=== PATIENT | male | born 1955 | race Caucasian/White ===

== ENCOUNTER 2017-11-24 11:43 | Emergency (ER) | payer OTHER, SELFPAY ==
[~2017-11-24] VITALS: Ht 175.3 cm; Wt 99.8 kg
[2017-11-24 13:18] LABS: BASOPHILS ABSOLUTE AUTO 0.02 K/mm3 (0.00-0.23); BASOPHILS PERCENT AUTO 0 % (0-2); EOSINOPHILS ABSOLUTE AUTO 0.02 K/mm3 (0.00-0.68); EOSINOPHILS PERCENT AUTO 0 % (0-6); Hematocrit 49.1 % (37.0-53.0); Hemoglobin 16.5 g/dL (13.5-17.5); IMMATURE GRAN ABSOLUTE AUTO 0.01 K/mm3 (0.00-0.10); IMMATURE GRAN PERCENT AUTO 0 % (0-1); LYMPHOCYTES ABSOLUTE AUTO 1.45 K/mm3 (0.84-5.20); LYMPHOCYTES PERCENT AUTO 22 % (21-46); MONOCYTES ABSOLUTE AUTO 0.88 K/mm3 (0.16-1.47); MONOCYTES PERCENT AUTO 13 % (4-13); Mean Corpuscular HGB 31.7 pg (26.0-34.0); Mean Corpuscular HGB Conc 33.6 g/dL (31.5-36.5); Mean Corpuscular Volume 94 fL (80-100); Mean Platelet Volume 11.4 fL (9.1-12.4); NEUTROPHILS ABSOLUTE AUTO 4.23 K/mm3 (1.96-9.15); NEUTROPHILS PERCENT AUTO 64 % (41-73); Platelet Count 130 K/mm3 (150-400); RDW Coefficient Variation 14.3 % (11.7-14.2); RDW Standard Deviation 49.7 fL (35.1-46.3); White Blood Cell Count 6.61 K/mm3 (4.00-11.30)
[2017-11-24 13:56] LABS: Alanine Aminotransfer (ALT/SGP 52 U/L (12-78); Albumin, Blood 3.7 g/dL (3.4-5.0); Albumin/Globulin Ratio 1.1 (0.8-1.8); Alk Phos 65 U/L (50-136); Anion Gap 9 mmol/L (6-16); Aspartate Aminotrans (AST/SGOT 66 U/L (12-37); Bilirubin, Total 0.3 mg/dL (0.1-1.0); Blood Urea Nitrogen 10 mg/dL (8-24); Bun/Creatinine Ratio 13.9 (12.0-20.0); CO2, Blood 26 mmol/L (21-32); Calcium, Blood 8.1 mg/dL (8.5-10.1); Chloride, Blood 100 mmol/L (98-108); Creatinine, Blood 0.72 mg/dL (0.60-1.20); Globulin, Blood 3.5 g/dL (2.2-4.0); Glomerular Filtration Rate >60 (60-); Glucose, Blood 142 mg/dL (70-99); Potassium, Blood 3.6 mmol/L (3.5-5.5); Sodium, Blood 135 mmol/L (136-145); Total Protein, Blood 7.2 g/dL (6.4-8.2); Troponin I <0.015 ng/mL (0.000-0.040)
[2017-11-24] MEDS ORDERED: ALBU90OI INH (16:13)
[2017-11-24] MEDS ORDERED: BENZ100A PO (16:13)
== END 2017-11-24 16:20 | disposition home or self-care (01) ==
LOC: ER 11:43
PROVIDERS: Emergency Medicine
DX: J40 Bronchitis, not specified as acute or chronic (principal); F17.200 Nicotine dependence, unspecified, uncomplicated
CPT/HCPCS: 36415; 71046; 80053; 84484; 85025; 93005; 93010; 94640; 99283

== ENCOUNTER 2024-06-14 13:16 | Inpatient (IN) | payer MEDICARE, OTHER ==
[~2024-06-14] VITALS: Ht 175.3 cm; Wt 150.5 kg
[~2024-06-14 13:16] MED LIST: ALBU90OI INH; BENZ100A PO
[2024-06-14] MEDS ORDERED: NAPR220 PO (14:07)
[2024-06-14 14:47] LABS: BASOPHILS PERCENT AUTO 1 % (0-2); EOSINOPHILS PERCENT AUTO 1 % (0-6); Hematocrit 52.1 % (37.0-53.0); Hemoglobin 17.1 g/dL (13.5-17.5); IMMATURE GRAN ABSOLUTE AUTO 0.05 K/mm3 (0.00-0.10); IMMATURE GRAN PERCENT AUTO 1 % (0-1); LYMPHOCYTES PERCENT AUTO 12 % (21-46); MONOCYTES ABSOLUTE AUTO 1.33 K/mm3 (0.16-1.47); MONOCYTES PERCENT AUTO 13 % (4-13); Mean Corpuscular HGB 32.3 pg (26.0-34.0); Mean Corpuscular HGB Conc 32.8 g/dL (31.5-36.5); Mean Corpuscular Volume 99 fL (80-100); Mean Platelet Volume 11.9 fL (9.1-12.4); NEUTROPHILS ABSOLUTE AUTO 7.39 K/mm3 (1.96-9.15); NEUTROPHILS PERCENT AUTO 73 % (41-73); Platelet Count 165 K/mm3 (150-400); RDW Coefficient Variation 15.8 % (11.7-14.2); RDW Standard Deviation 56.5 fL (35.1-46.3); Red Blood Cell Count 5.29 M/mm3 (4.30-5.90); White Blood Cell Count 10.17 K/mm3 (4.00-11.30)
[2024-06-14] MEDS ORDERED: Ipratropium/Albuterol SulF 2.5-0.5MG/3 ML Amp INH ONE (15:00)
[2024-06-14 15:23] LABS: Albumin, Blood 3.8 g/dL (3.4-5.0); Albumin/Globulin Ratio 1.2 (0.8-1.8); Bilirubin, Total 0.9 mg/dL (0.1-1.0); Bun/Creatinine Ratio 22.8 (12.0-20.0); Calcium, Blood 8.3 mg/dL (8.5-10.1); Creatinine, Blood 1.01 mg/dL (0.60-1.20); Globulin, Blood 3.1 g/dL (2.2-4.0); Potassium, Blood 4.4 mmol/L (3.5-5.5); Thyroid Stimulating Hormone 4.01 uIU/mL (0.360-4.800); Total Protein, Blood 6.9 g/dL (6.4-8.2)
[2024-06-14] MEDS ORDERED: Furosemide 10 MG/ML 4ML Vial IV ONE (16:30)
[2024-06-14] MEDS ORDERED: Ondansetron HCl 2 MG / ML 2ML Vial IV PRN (17:45)
[2024-06-14] MEDS ORDERED: Acetaminophen 325 MG TABLET PO PRN (17:45)
[2024-06-14] MEDS ORDERED: HydrALAZINE HCl 25 MG Tab PO PRN (17:50)
[2024-06-14] MEDS ORDERED: Albuterol 2.5 MG/3 ML VIAL INH PRN (17:50)
[2024-06-14] MEDS ORDERED: Nitroglycerin 1 INCH/GM PKT TOP SCH (18:00)
[2024-06-14] MEDS ORDERED: Furosemide 10 MG/ML 4ML Vial IV SCH (18:00)
--- NOTE | 2024-06-14 20:35 | NUR ---
RECEIVED REPORT FROM ED RNNEVA.
[2024-06-14 20:54] VITALS: BP 146/84
--- NOTE | 2024-06-15 00:13 | NUR ---
PT RESTING QUIETLY. RESP EVEN ON 3L VIA NC. SCDS IN PLACE. CALL LT IN REACH.
--- NOTE | 2024-06-15 02:05 | NUR ---
PT RESTING QUIETLY. ON 3L VIA NC. NO NEEDS AT THIS TIME. CALL LT IN REACH.
[2024-06-15 03:50] VITALS: BP 144/96
--- NOTE | 2024-06-15 04:29 | NUR ---
PT SITTING ON SIDE OF BED LEANING ON BEDSIDE TABLE. DENIES NEEDS AT THIS TIME. RESP EVEN ON 3L VIA NC. STATES HE'S GOING TO TRY AND GET A LITTLE MORE SLEEP. URINAL EMPTIED. CALL LT IN REACH.
--- NOTE | 2024-06-15 05:21 | NUR ---
SHIFT SUMMARY: ER ADMIT. PT A/O. STATES NEEDS APPROPRIATELY. FOLLOWS DIRECTIONS. CURRENTLY ON 3L VIA NC, RA BASELINE. USES A CANE FOR AMBULATION, BASELINE. SR ON TELE, 97 AT TIME ASSESSMENT. NITROPASTE ON. PT DENIES CP. LS FINE EXP WHEEZES. PT DECLINED BREATHING TREATMENTS DURING SHIFT. IV LASIX GIVEN IN ER, PT VOIDING YELLOW URINE. PT STATES HE DRINKS A SIX PACK OF LITE BEER DAILY AND LAST DRINK 3-4 DAYS AGO, STATES HE'S NOT EXPERIENCED ALCOHOL WITHDRAWALS. PT APPEARS IN NO DISTRESS. STANDS AND USES URINAL AT BEDSIDE. WILL CONTINUE TO PROVIDE CARE T/O SHIFT UNTIL SHIFT REPORT TO ONCOMING NURSE. CALL LT IN REACH.
[2024-06-15 05:52] LABS: Anion Gap 9 mmol/L (3-11); Blood Urea Nitrogen 23 mg/dL (8-24); Bun/Creatinine Ratio 20.4 (12.0-20.0); CO2, Blood 31 mmol/L (21-32); Calcium, Blood 8.2 mg/dL (8.5-10.1); Chloride, Blood 106 mmol/L (98-108); Cholesterol 132 mg/dL (50-200); Creatinine, Blood 1.13 mg/dL (0.60-1.20); Glomerular Filtration Rate 71 (60-); Glucose, Blood 111 mg/dL (70-99); HDL Cholesterol 33 mg/dL (>39); LDL/HDL RATIO 2.6; Low Density Lipoprotein Chol 85 mg/dL (0-110); Magnesium, Blood 2.3 mg/dL (1.6-2.4); Potassium, Blood 4.4 mmol/L (3.5-5.5); Sodium, Blood 142 mmol/L (136-145); Triglycerides 72 mg/dL (30-160); Very Low Density Lipoprot Chol 14 mg/dL (6-32)
[2024-06-15 07:25] VITALS: BP 127/85
[2024-06-15] MEDS ORDERED: Enoxaparin 40 MG/0.4 ML SYR SC SCH (09:00)
[2024-06-15] MEDS ORDERED: Metoprolol Tartrate 25 MG Tab PO SCH (09:00)
[2024-06-15 15:41] VITALS: BP 121/82
--- NOTE | 2024-06-15 18:51 | NUR ---
SHIFT SUMMARY PATIENT ALERT AND INTERACTIVE. GENERALIZED SWELLING DECREASED. PATIENT CONTINUES TO BE ON 02. PATIENT UP INDEPENDENT IN ROOM. PATIENT RESPONDING WELL TO LASIX. LOW SODIUM DIET, DIURETICS, AND LIMITED FLUID EDUCATION PROVIDED TO PAITENT. PATIENT ADMITS THAT HE DOES NOT HAVE A REGULAR PCP. PATIENT USUALLY GOES TO URGENT CARE FOR NEEDS. EDUCATED PATIENT ON THE IMPORTANCE OF HAVING A REGULAR PROVIDER TO MANAGE ISSUES. ECHO DONE AT BEDSIDE. PRESENT DURING ECHO
[2024-06-15 19:57] VITALS: BP 129/88
[2024-06-15] MEDS ORDERED: Sacubitril/Valsartan 24 MG-26 MG Tab PO SCH (21:00)
[2024-06-16 05:02] LABS: BASOPHILS ABSOLUTE AUTO 0.08 K/mm3 (0.00-0.23); BASOPHILS PERCENT AUTO 1 % (0-2); EOSINOPHILS PERCENT AUTO 2 % (0-6); Hematocrit 51.4 % (37.0-53.0); Hemoglobin 16.5 g/dL (13.5-17.5); IMMATURE GRAN ABSOLUTE AUTO 0.04 K/mm3 (0.00-0.10); IMMATURE GRAN PERCENT AUTO 1 % (0-1); LYMPHOCYTES ABSOLUTE AUTO 1.55 K/mm3 (0.84-5.20); LYMPHOCYTES PERCENT AUTO 19 % (21-46); MONOCYTES ABSOLUTE AUTO 1.16 K/mm3 (0.16-1.47); MONOCYTES PERCENT AUTO 14 % (4-13); Mean Corpuscular HGB 32.1 pg (26.0-34.0); Mean Corpuscular HGB Conc 32.1 g/dL (31.5-36.5); Mean Corpuscular Volume 100 fL (80-100); Mean Platelet Volume 11.9 fL (9.1-12.4); NEUTROPHILS ABSOLUTE AUTO 5.29 K/mm3 (1.96-9.15); NEUTROPHILS PERCENT AUTO 64 % (41-73); Platelet Count 129 K/mm3 (150-400); RDW Coefficient Variation 15.5 % (11.7-14.2); RDW Standard Deviation 57.7 fL (35.1-46.3); Red Blood Cell Count 5.14 M/mm3 (4.30-5.90); White Blood Cell Count 8.32 K/mm3 (4.00-11.30)
[2024-06-16 05:17] VITALS: BP 119/84
--- NOTE | 2024-06-16 05:33 | NUR ---
COMPUTER PERIPHERAL EQUIPMENT OPERATOR NOTES PATIENT IS A&OX4, VITALS ARE STABLE, ON 3L NC AND ROOM AIR AT BASE LINE. PATIENT DENIED ANY PAIN, ON TELE RUNNING SINUS RHYTHM BUT HAD ONE EPISODE OF SVT RUN OF 178. PATIENT CALLS APPROPRIATELY, PATIENT SLEPT GOOD LASTNIGHT.
[2024-06-16 05:45] LABS: Bun/Creatinine Ratio 22.1 (12.0-20.0); Creatinine, Blood 1.13 mg/dL (0.60-1.20); Potassium, Blood 4.5 mmol/L (3.5-5.5)
[2024-06-16 07:24] VITALS: BP 128/91
[2024-06-16] MEDS ORDERED: Spironolactone 12.5 MG TAB PO SCH (09:00)
[2024-06-16] MEDS ORDERED: Empagliflozin 10 MG TAB PO SCH (09:00)
[2024-06-16] MEDS ORDERED: Metolazone 2.5 MG Tab PO SCH (11:00)
[2024-06-16 15:44] VITALS: BP 146/91
--- NOTE | 2024-06-16 17:51 | NUR ---
SHIFT SUMMARY PATIENT ALERT AND INTERACTIVE. PATIENT INDEPENDENT IN THE ROOM. PATIENT DENIES ANY PAIN AT THIS TIME. BREATHING BETTER BUT STILL ON 02. CONTINUE TO TRY TO TITRATE OFF 02. CONTINUE TO RESPOND TO DIURETICS. ECHO RESULTS REVIEWED WITH PATIENT BY DR. AMBROSE. EF 25-30%. CONTINUE TO PROVIDE EDUCATION RELATED TO DIET, FLUIDS AND MEDICATIONS TO MANAGE CONDITION. PATIENT HOPEFUL TO GO HOME TOMORROW IF STABLE.
[2024-06-17 04:20] VITALS: BP 103/60
--- NOTE | 2024-06-17 04:49 | NUR ---
DIRECTOR CLINICAL OPERATIONS NOTES PATIENT IS A&OX4, STABLE VITALS, ON 3L NC AT NIGHT NEEDED, ON TELE RUNNING SINUS RHYTHM 80S-90S. PATIENT IS INDEPENDENT IN ROOM AND CALLS APPROPRIATELY. PATIENT IS CURRENTLY RESTING IN BED.
[2024-06-17 05:57] LABS: Bun/Creatinine Ratio 19.8 (12.0-20.0); Calcium, Blood 8.1 mg/dL (8.5-10.1); Creatinine, Blood 1.11 mg/dL (0.60-1.20); Potassium, Blood 3.7 mmol/L (3.5-5.5)
[2024-06-17 07:27] VITALS: BP 114/66
[2024-06-17] MEDS ORDERED: Metoprolol Succinate 25 MG TABCR PO SCH (09:00)
[2024-06-17] MEDS ORDERED: ACET325 PO (11:04)
[2024-06-17] MEDS ORDERED: METO25ER PO (11:04)
[2024-06-17] MEDS ORDERED: ALDACTONE25 MG PO (11:05)
[2024-06-17] MEDS ORDERED: ASPI81CH PO (11:06)
[2024-06-17] MEDS ORDERED: FURO40 PO (11:08)
[2024-06-17] MEDS ORDERED: LOSA25 PO (11:09)
--- NOTE | 2024-06-17 14:30 | NUR ---
SHIFT SUMMARY AND DISCHARGE PATIENT ALERT AND INTERACTIVE. PATIENT INDEPENDENT IN THE ROOM. PATIENT DISCHARGED HOME. DISCHARGE INSTRUCTIONS REVIEWED WITH AND PATIENT. IV DC'D. BELONGINGS SENT WITH PATIENT. PATIENT TAKEN OUT VIA WHEELCHAIR BY SOCR[facility].
== END 2024-06-17 13:35 | disposition home or self-care (01) | DRG 291 ==
LOC: ER 13:16 → MEDS 17:40 → ENPENDDIS 06-17 10:43 → MEDS 06-17 13:35
PROVIDERS: Internal Medicine; Nurse Practitioner Acute Care; Student in an Organized Health Care Education/Training Program; ADMIT Internal Medicine
DX: I11.0 Hypertensive heart disease with heart failure (principal); I50.41 Acute combined systolic (congestive) and diastolic (congestive) heart failure; J96.01 Acute respiratory failure with hypoxia; Z68.43 Body mass index [BMI] 50.0-59.9, adult; F10.20 Alcohol dependence, uncomplicated; J44.9 Chronic obstructive pulmonary disease, unspecified; I16.0 Hypertensive urgency; E66.01 Morbid (severe) obesity due to excess calories; Z96.643 Presence of artificial hip joint, bilateral; Z79.899 Other long term (current) drug therapy; Z87.891 Personal history of nicotine dependence
CPT/HCPCS: 36415; 71045; 80048; 80053; 80061; 83036; 83735; 83880; 84443; 85025; 93005; 93010; 94640; 94664; 94760; 94761; 96374; 99285-25; A9270; C8929; J1650; J1940; Q9957

== ENCOUNTER 2024-08-31 08:25 | Day surgery (SDC) | payer MEDICARE, OTHER ==
[2024-08-31] VITALS (7 sets, daily range): BP systolic 116–144; BP diastolic 71–128
[~2024-08-31] VITALS: Ht 175.3 cm; Wt 130.0 kg
[~2024-08-31 08:25] MED LIST changes: +ACET325 PO; +ALDACTONE25 MG PO; +ASPI81CH PO; +FURO40 PO; +LOSA25 PO; +METO25ER PO; +NAPR220 PO
[2024-08-31] MEDS ORDERED: Verapamil HCL 2.5 MG/ML 2ML Injection ONE (08:36)
[2024-08-31] MEDS ORDERED: NS 250 ML IV ONE (08:36)
[2024-08-31] MEDS ORDERED: Heparin Sodium 1000 Units/ML 10ML MDV ONE (08:36)
[2024-08-31] MEDS ORDERED: NS 1,000 ML IV ONE ×2 (08:36→09:33)
[2024-08-31] MEDS ORDERED: Nitroglycerin 2 MG/20 ML BTL ONE (08:37)
[2024-08-31] MEDS ORDERED: Aspirin 81 MG Chew ONE (09:21)
--- NOTE | 2024-08-31 11:01 | NUR ---
pt back to recovery from lab. pt a&oX4. pt given coffee by february. pt refused food. radial site and rhc site soft and non-tender per pt. no bleeding noted at either site.
--- NOTE | 2024-08-31 11:19 | NUR ---
dr gordon at bedside discussing findings and plan of care with pt and .
--- NOTE | 2024-08-31 11:41 | NUR ---
plavix script called into [facility]
[2024-08-31] MEDS ORDERED: CLOP75 PO (11:42)
--- NOTE | 2024-08-31 11:49 | NUR ---
2CC REMOVED FROM TR BAND. SITE SOFT AND MILDLY TENDER TO TOUCH PER PT. NO BLEEDING NOTED.
--- NOTE | 2024-08-31 12:08 | NUR ---
2cc removed from tr band. no bleeding noted. site soft and non-tender per pt.
--- NOTE | 2024-08-31 12:28 | NUR ---
2cc removed from tr band. site soft and non-tender per pt. no bleeding noted. rhc site soft and non-tender per pt. no bleeding noted.
--- NOTE | 2024-08-31 12:29 | NUR ---
tr band fully deflated. site soft and non-tender. no bleeding noted.
--- NOTE | 2024-08-31 12:55 | NUR ---
pt ambulated to restroom. pt now changing into clothes.
--- NOTE | 2024-08-31 13:20 | NUR ---
pt given dc instructions and verbalized understanding. iv out. pt changed. radial and rhc site soft and non-tender per pt. no bleeding noted. cloth dot, arm board, and sling applied. pt taken to [facility] via [facility]. so to drive pt home.
== END 2024-08-31 14:40 | disposition home or self-care (01) ==
LOC: MHTC 08:25
DX: I25.10 Atherosclerotic heart disease of native coronary artery without angina pectoris (principal); I25.5 Ischemic cardiomyopathy; J44.9 Chronic obstructive pulmonary disease, unspecified; E66.01 Morbid (severe) obesity due to excess calories; E78.5 Hyperlipidemia, unspecified; I11.0 Hypertensive heart disease with heart failure; I50.20 Unspecified systolic (congestive) heart failure
CPT/HCPCS: 76937; 85347; 93458; 93460; A9270; C1769; C1887; C1894; J1644; J7030; J7050; Q9967

== ENCOUNTER 2024-09-08 06:00 | Day surgery (SDC) | payer MEDICARE, OTHER ==
[2024-09-08] VITALS (16 sets, daily range): BP systolic 105–142; BP diastolic 73–120
[~2024-09-08] VITALS: Ht 175.3 cm; Wt 130.2 kg
[~2024-09-08 06:00] MED LIST changes: +CLOP75 PO
[2024-09-08] MEDS ORDERED: Crestor40 MG PO (06:20)
[2024-09-08] MEDS ORDERED: Verapamil HCL 2.5 MG/ML 2ML Injection ONE (06:22)
[2024-09-08] MEDS ORDERED: NS 1,000 ML IV ONE ×3 (06:22→09:41)
[2024-09-08] MEDS ORDERED: Nitroglycerin 2 MG/20 ML BTL ONE (06:22)
[2024-09-08] MEDS ORDERED: Heparin Sodium 1000 Units/ML 10ML MDV ONE ×4 (06:22→09:41)
[2024-09-08] MEDS ORDERED: NS 250 ML IV ONE (06:22)
[2024-09-08] MEDS ORDERED: Clopidogrel Bisulfate 75 MG Tab ONE (06:41)
[2024-09-08 06:47] LABS: Hematocrit 54.2 % (37.0-53.0); Hemoglobin 18.3 g/dL (13.5-17.5); Mean Corpuscular HGB 30.8 pg (26.0-34.0); Mean Corpuscular HGB Conc 33.8 g/dL (31.5-36.5); Mean Corpuscular Volume 91 fL (80-100); Mean Platelet Volume 10.4 fL (9.1-12.4); Platelet Count 201 K/mm3 (150-400); RDW Coefficient Variation 15.1 % (11.7-14.2); RDW Standard Deviation 50.9 fL (35.1-46.3); Red Blood Cell Count 5.95 M/mm3 (4.30-5.90); White Blood Cell Count 10.79 K/mm3 (4.00-11.30)
[2024-09-08] MEDS ORDERED: FentaNYL Citrate 50 MCG/ML 2 ML Injection ONE (06:50)
[2024-09-08] MEDS ORDERED: Midazolam HCl 1MG / ML 2ML Vial ONE (06:50)
[2024-09-08 06:57] LABS: Bun/Creatinine Ratio 16.8 (12.0-20.0); Calcium, Blood 9.2 mg/dL (8.5-10.1); Creatinine, Blood 0.83 mg/dL (0.60-1.20); Potassium, Blood 4.2 mmol/L (3.5-5.5)
[2024-09-08 07:07] LABS: International Normalized Ratio 1.02; Prothrombin Time Results 10.9 Sec (9.7-11.5)
[2024-09-08] MEDS ORDERED: Phenylephrine HCl 100 MCG/ML-NS 10MLSYR (1MG/10ML) ONE (07:43)
[2024-09-08] MEDS ORDERED: NS 500 ML IV ONE (09:21)
[2024-09-08] MEDS ORDERED: FLU VACC TS2024-25(6MOS UP)/PF 45 MCG/0.5 ML SYRINGE IM SCH (10:55)
--- NOTE | 2024-09-08 11:23 | NUR ---
ARRIVAL TO PCU: PT ARRIVED TO PCU-14 VIA BED AT APPROX 1030. PT A/OX4, ABLE TO COMMUNICATE NEEDS W/ STAFF. R RADIAL SITE INTACT W/ TR BAND & ARMBOARD IN PLACE. PER FOOD PREPARATION SUPERVISOR RN, 13CC PLACED IN BAND AT 1010. PT DENIES CHEST PAIN/PRESSURE POST-PROCEDURE. SINUS RHYTHM ON TELE. BP STABLE, MAP >65. POST-PCI EKG COMPLETED PER MD ORDERS. SPO2 MID-80'S ON ROOM AIR, 2L O2 VIA NC PLACED TO MAINTAIN SPO2 >90%. T[place] NOTED, PT REPORTS THIS IS BASELINE. 2+ PITTING EDEMA TO RLE, TRACE EDEMA TO LLE. ABLE TO STAND & AMBULATE TO RESTROOM W/ 1P SBA FOR LINE MANAGEMENT. PT'S SPOUSE AT BEDSIDE AT THIS TIME. ORIENTED PT TO ROOM/UNIT/CALL LIGHT. PT UP IN CHAIR EATING A SNACK W/ CALL LIGHT IN REACH.
[2024-09-08] MEDS ORDERED: CARV3.125 PO (12:21)
[2024-09-08] MEDS ORDERED: NS 400 ML IV SCH (14:20)
--- NOTE | 2024-09-08 15:05 | NUR ---
TR BAND FULLY DEFLATED AT THIS TIME. SITE REMAINS INTACT; NO BLEEDING, BRUISING, OR HEMATOMA FORMATION. ARMBOARD REMAINS IN PLACE, PT COMPLIANT W/ RUE RESTRICTIONS. VSS. PT TITRATED TO ROOM AIR W/ SPO2 88-92%. NS INFUSING AT 100 ML/HR PER MD ORDERS. PT DENIES OTHER NEEDS AT THIS TIME.
--- NOTE | 2024-09-08 15:39 | NUR ---
TR BAND REMOVED, CLEAR DRESSING PLACED. SITE REMAINS INTACT W/O BLEEDING, BRUISING, OR HEMATOMA FORMATION. RADIAL PULSE STRONG. SENSATION INTACT DISTAL TO SITE. ARMBOARD IN PLACE. VSS.
--- NOTE | 2024-09-08 18:26 | NUR ---
DISCHARGE NOTE: PT WAS DISCHARGED FROM PCU AT APPROX 1820. R RADIAL SITE INTACT, ARMBOARD IN PLACE. NO CLEEDING, BRUISING, OR HEMATOMA FORMATION AT TIME OF DISCHARGE. ALL INSTRUCTIONS, EDUCATION, AND FOLLOW UP DISCUSSED W/ PT AND SPOUSE BY THIS RN; BOTH PT AND SPOUSE VOICE UNDERSTANDING. MEDICATIONS REVIEWED. PT ABLE TO DRESS SELF INDEPENDENTLY, IV REMOVED W/O DIFFICULTY BY THIS RN. ALL PERSONAL BELONGINGS GATHERED FROM ROOM & SENT W/ PT. PT WHEELED TO PRIVATE VEHICLE BY THIS RN.
[2024-09-09] MEDS ORDERED: Enoxaparin 40 MG/0.4 ML SYR SC SCH (09:00)
== END 2024-09-08 18:25 | disposition home or self-care (01) ==
LOC: MHTC 06:00 → PCU 10:08 → MHTC 18:25
PROVIDERS: Student in an Organized Health Care Education/Training Program
DX: I25.10 Atherosclerotic heart disease of native coronary artery without angina pectoris (principal); E66.01 Morbid (severe) obesity due to excess calories; J44.9 Chronic obstructive pulmonary disease, unspecified; E78.5 Hyperlipidemia, unspecified; I11.0 Hypertensive heart disease with heart failure; I50.20 Unspecified systolic (congestive) heart failure; Z79.899 Other long term (current) drug therapy
CPT/HCPCS: 76937; 80048; 85027; 85347; 85610; 92972; 92978; 92979; 93005; 93010; 99152; 99153; A9270; C1725; C1753; C1761; C1769; C1874; C1887; C1894; C9600; C9601; J1644; J2250; J2371; J3010; J7030; J7040; J7050; Q9967

== ENCOUNTER 2024-09-23 06:32 | Day surgery (SDC) | payer MEDICARE, OTHER ==
[~2024-09-23] VITALS: Ht 175.3 cm; Wt 130.2 kg
[2024-09-23] VITALS (9 sets, daily range): BP systolic 107–130; BP diastolic 70–97
[~2024-09-23 06:32] MED LIST changes: +CARV3.125 PO; +Crestor40 MG PO
[2024-09-23] MEDS ORDERED: CO Q10100 MG PO (07:10)
[2024-09-23] MEDS ORDERED: FentaNYL Citrate 50 MCG/ML 2 ML Injection ONE (07:24)
[2024-09-23] MEDS ORDERED: Midazolam HCl 1MG / ML 2ML Vial ONE (07:24)
[2024-09-23] MEDS ORDERED: Verapamil HCL 2.5 MG/ML 2ML Injection ONE (07:24)
[2024-09-23] MEDS ORDERED: NS 2,000 ML IV ONE (07:25)
[2024-09-23] MEDS ORDERED: Heparin Sodium 1000 Units/ML 10ML MDV ONE ×2 (07:25→07:38)
[2024-09-23] MEDS ORDERED: NS 250 ML IV ONE (07:25)
[2024-09-23] MEDS ORDERED: Nitroglycerin 2 MG/20 ML BTL ONE (07:25)
[2024-09-23 07:30] LABS: BASOPHILS ABSOLUTE AUTO 0.13 K/mm3 (0.00-0.23); BASOPHILS PERCENT AUTO 1 % (0-2); EOSINOPHILS ABSOLUTE AUTO 0.24 K/mm3 (0.00-0.68); EOSINOPHILS PERCENT AUTO 2 % (0-6); Hematocrit 51.5 % (37.0-53.0); Hemoglobin 17.2 g/dL (13.5-17.5); IMMATURE GRAN ABSOLUTE AUTO 0.05 K/mm3 (0.00-0.10); IMMATURE GRAN PERCENT AUTO 1 % (0-1); LYMPHOCYTES ABSOLUTE AUTO 1.83 K/mm3 (0.84-5.20); LYMPHOCYTES PERCENT AUTO 18 % (21-46); MONOCYTES ABSOLUTE AUTO 1.34 K/mm3 (0.16-1.47); MONOCYTES PERCENT AUTO 13 % (4-13); Mean Corpuscular HGB 31.4 pg (26.0-34.0); Mean Corpuscular HGB Conc 33.4 g/dL (31.5-36.5); Mean Corpuscular Volume 94 fL (80-100); Mean Platelet Volume 10.9 fL (9.1-12.4); NEUTROPHILS ABSOLUTE AUTO 6.65 K/mm3 (1.96-9.15); NEUTROPHILS PERCENT AUTO 65 % (41-73); Platelet Count 238 K/mm3 (150-400); RDW Coefficient Variation 15.7 % (11.7-14.2); RDW Standard Deviation 53.4 fL (35.1-46.3); Red Blood Cell Count 5.48 M/mm3 (4.30-5.90); White Blood Cell Count 10.24 K/mm3 (4.00-11.30)
[2024-09-23 07:32] LABS: International Normalized Ratio 1.04; Prothrombin Time Results 11.1 Sec (9.7-11.5)
[2024-09-23 07:41] LABS: Bun/Creatinine Ratio 17.5 (12.0-20.0); Calcium, Blood 9.2 mg/dL (8.5-10.1); Creatinine, Blood 0.97 mg/dL (0.60-1.20); Potassium, Blood 4.1 mmol/L (3.5-5.5)
[2024-09-23] MEDS ORDERED: Phenylephrine HCl 100 MCG/ML-NS 10MLSYR (1MG/10ML) ONE (07:58)
[2024-09-23] MEDS ORDERED: Atropine Sulfate 0.1 MG/ML 10ML SYR ONE (07:58)
--- NOTE | 2024-09-23 08:56 | NUR ---
PT RETURNED TO RECOVERY ROOM IN [facility]CL[facility]ER. RIGHT RADIAL TR BAND SITE SOFT NON-TENDER WTIH NO HEMATOMA, NO PULSATILE BLEEDING AND RIGHT WRIST BOARD IN PLACE. PT DENIES CP. CALL LIGHT IN REACH. DR PRIETO IN ROOM TO SEE PT. PT DRININING COFFEE.
--- NOTE | 2024-09-23 09:10 | NUR ---
NO CHANGES TO R RAD TR BAND SITE. SPO2 PROBE HAS BEEN ON RIGHT INDEX FINGER SINCE ARRIVAL TO RECOVERY ROOM.
--- NOTE | 2024-09-23 09:17 | NUR ---
SHALOM GRIER TO R TR AND SITE. PT EATING BREAKFAST.
--- NOTE | 2024-09-23 09:29 | NUR ---
NO CHANGES TO R RAD TR BAND SITE.
--- NOTE | 2024-09-23 10:15 | NUR ---
NO CHANGES TO R RAD TR BAND SITE. PT'S SO/ IN ROOM.
--- NOTE | 2024-09-23 10:41 | NUR ---
12 CC OF AIR REMOVED OUT OF NOW DEFLATED RIGHT TR BAND. R TR BAND SITE STILL SOFT NON-TENDER WITH NO HEMATOMA, NO PULSATILE BLEEDING AND WRIST BOARD IN PLACE. DISCHARGE INSTRUCTIONS REVIEWED ALL QUESTIONS ANSWERED.
--- NOTE | 2024-09-23 11:36 | NUR ---
DEFLATED RIGHT TR BAND REMOVED AND POLYMEM PLACED OVER R RAD SITE WITH WRIST BOARD IN PLACE. R RAD SITE STILL SOFT NON-TENDER WTIH NO HEMATOMA, NO PULSATILE BLEEDING WITH RIGHT WRIST BOARD IN PLACE. 20G IV DISCONTINUED FROM RIGHT AC WITH INTACT DRESSING. PT ESCORTED OUT VIA WHEELCHAIR ESCORT.
== END 2024-09-23 12:13 | disposition home or self-care (01) ==
LOC: MHTC 06:32
PROVIDERS: Student in an Organized Health Care Education/Training Program
DX: I25.10 Atherosclerotic heart disease of native coronary artery without angina pectoris (principal); I25.5 Ischemic cardiomyopathy; E78.5 Hyperlipidemia, unspecified; J44.9 Chronic obstructive pulmonary disease, unspecified; I10 Essential (primary) hypertension; E66.01 Morbid (severe) obesity due to excess calories; Z68.41 Body mass index [BMI] 40.0-44.9, adult; Z87.891 Personal history of nicotine dependence; Z79.82 Long term (current) use of aspirin; Z79.02 Long term (current) use of antithrombotics/antiplatelets; Z79.899 Other long term (current) drug therapy; Z95.5 Presence of coronary angioplasty implant and graft
CPT/HCPCS: 76937; 80048; 85025; 85347; 85610; 92978; 93454; 99152; 99153; C1725; C1753; C1769; C1874; C1887; C1894; C9600; J0461; J1644; J2250; J2371; J3010; J7030; J7050; Q9967